=== PATIENT | male | born 2000 | race Caucasian/White ===

== ENCOUNTER 2021-07-15 08:21 | Emergency (ER) | payer SELFPAY ==
[2021-07-15 08:24] VITALS: BP 130/82
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
[2021-07-15 10:21] LABS: Basophils % (Auto) 0.2 % (0.0-1.8); Eosinophils % (Auto) 0.1 % (0.0-4.3); Hematocrit 47.1 % (35.5-45.6); Hemoglobin 15.3 gm/dl (11.8-15.2); Lymphocytes % (Auto) 6.1 % (13.4-35.0); Mean Corpuscular HGB Conc 32 % (32-34); Mean Corpuscular Volume 96 fl (84-94); Monocytes # (Auto) 0.9 K/mm3 (0.0-0.8); Monocytes % (Auto) 5.6 % (0.0-7.3); Platelet Count 433 K/mm3 (140-440); Red Cell Distribution Width 14.6 % (13.2-15.2)
[2021-07-15 10:39] LABS: BUN/Creatinine Ratio 8; Blood Urea Nitrogen 7 mg/dL (9-20); Calcium 9.6 mg/dL (8.4-10.2); Hemolysis Index 8
--- NOTE | 2021-07-15 11:46 | XRay Report ---
XR elbow 2V LT INDICATION / CLINICAL INFORMATION: leftelbow injury. COMPARISON: None available. FINDINGS: No acute fracture. Normal alignment. Joint spaces are preserved. No destructive osseous lesion or s uspicious periosteal reaction. Impression: 1.No acute fracture. Signer Name: Nehemiah James MD Signed: 07/15/2021 10:10 AM Workstation Name: [id number]
--- NOTE | 2021-07-15 11:48 | Cat Scan Report ---
CT cervical spine wo con, CT head/brain wo con INDICATION: NECK INJURY BEST IMAGES POSSIBLE. TECHNIQUE: CT head and cervical spine without contrast. All CT scans at this location are performed u sing CT dose reduction for ALARA by means of automated exposure control. COMPARISON: None. FINDINGS: HEAD: Intracranial: Noriega-white matter differentiation is maintained. No intracranial hemorrhage. No extra a xial collection.. No hydrocephalus. No herniation. Sinuses: Paranasal sinuses and mastoid air cells are essentially clear. Orbits: Globes are intact Calvarium: Small posterior scalp hematoma. No acute fracture. CERVICAL: Alignment: Normal alignment. Vertebrae: No fracture. Vertebral body heights are preserved. C1 and C2 are congruent. Atlantooccipi sravanthi joint is maintained. Spondylolysis: No significant spondylosis. Soft tissues: No prevertebral soft tissue thickening. Additional findings: No significant additional findings. IMPRESSION: 1. Small posterior scalp hematoma. No acute intracranial abnormality. 2.No cervical spine fracture. Signer Name: Nehemiah James MD Signed: 07/15/2021 10:50 AM Workstation Name: [id number]
[2021-07-15 13:15] LABS: Bilirubin,Urine NEG (Negative); Blood,Urine NEG (Negative); Color,Urine Straw (Yellow); Hyaline Casts,Urine 2 /LPF; Protein,Urine <15 mg/dL mg/dL (Negative); Urobilinogen,Urine < 2.0 mg/dL (<2.0); WBC,Urine < 1.0 /HPF (0.0-6.0)
[2021-07-15 13:21] LABS: Amphetamine Screen,Urine Negative; Methadone Screen,Urine Negative; Opiate Screen,Urine Negative
[2021-07-15 13:47] LABS: Benzodiazepines Screen,Urine Positive; Cannabinoid Screen,Urine Positive; Cocaine Screen,Urine Positive
== END 2021-07-15 17:05 | disposition home or self-care (01) ==
LOC: ED 08:21
DX: S09.90XA Unspecified injury of head, initial encounter (principal); F19.10 Other psychoactive substance abuse, uncomplicated; F14.10 Cocaine abuse, uncomplicated; Y09 Assault by unspecified means; Y93.89 Activity, other specified; Y92.89 Other specified places as the place of occurrence of the external cause; Y99.8 Other external cause status
CPT/HCPCS: 36415; 70450; 72125; 80048; 80307; 80320; 81001; 85025; 99284; G0480